=== PATIENT | female | born 1975 | race Caucasian/White ===

== ENCOUNTER 2016-11-23 10:54 | Emergency (ER) | payer SELFPAY ==
--- NOTE | 2016-11-23 11:00 | ER Document Report ---
ED Medical Screen (RME) - General Stated Complaint: URINARY SYMPTOMS Mode of Arrival: Ambulatory Information source: Patient Notes: Patient complains of urinary frequency and dysuria for the past 4 days with low back pain. Patient states she has had a fever I have greeted and performed a rapid initial assessment of this patient. A comprehensive ED assessment and evaluation of the patient, analysis of test results and completion of the medical decision making process will be conducted by additional ED providers. - Related Data Allergies/Adverse Reactions: No Known Allergies Allergy (Unverified 11/23/16 10:57) Physical Exam - General General appearance: Appears well, Alert In distress: None
[2016-11-23 11:32] LABS: APPEARANCE,URINE SLIGHTLY-CLOUDY; BILIRUBIN,URINE NEGATIVE (NEGATIVE); GLUCOSE, URINE NEGATIVE (NEGATIVE); KETONES,URINE NEGATIVE (NEGATIVE); LEUKOCYTE ESTERASE,URINE NEGATIVE (NEGATIVE); NITRITE,URINE NEGATIVE (NEGATIVE); PROTEIN,URINE NEGATIVE (NEGATIVE); URINE SPECIFIC GRAVITY 1.013; UROBILINOGEN,URINE NEGATIVE mg/dL (<2.0)
--- NOTE | 2016-11-23 11:36 | ER Document Report ---
HPI - HPI Onset: Other Onset/Duration: Gradual Quality of pain: Burning Pain Level: 5 Context: 41-year-old female that has had a hysterectomy is complaining of urinary discomfort, burning, pressure, and irritation to her vagina for 5 days. She thought it was a yeast infection and 5 Monistat and Diflucan which did not relieve the symptoms. Urinalysis is been sent for and triaged. She has a history of BV, endometriosis, chronic dyspareunia. No pelvic pain or fever. No vaginal discharge. Associated Symptoms: None Exacerbated by: Denies Relieved by: Denies Similar symptoms previously: Yes Recently seen / treated by doctor: No - ROS ROS below otherwise negative: Yes Systems Reviewed and Negative: Yes All other systems reviewed and negative - URINARY Urinary: REPORTS: Dysuria - DERM Skin Color: Normal - NURSING COMMENTS Comment: s. Pt States buring when she urinates. States that she took something to clear a yeast infection but it hasnt helped. States X5 days. States that it always hurts when she has intercourse. States pain when she urinate Past Medical History - General Information source: Patient - Social History Smoking Status: Former Smoker Cigarette use (# per day): No Chew tobacco use (# tins/day): No Frequency of alcohol use: None Drug Abuse: None Lives with: Family Family History: Reviewed & Not Pertinent Patient has suicidal ideation: No Patient has homicidal ideation: No - Medical History Medical History: Negative Renal/ Medical History: Denies: Hx Peritoneal Dialysis Past Surgical History: Reports: Hx Hysterectomy Vertical Provider Document - CONSTITUTIONAL Agree With Documented VS: Yes Exam Limitations: No Limitations - INFECTION CONTROL TRAVEL OUTSIDE OF THE [place] IN LAST 30 DAYS: No - HEENT HEENT: Normocephalic - NECK Neck: Supple - RESPIRATORY Respiratory: Breath Sounds Normal, No Respiratory Distress O2 Sat by Pulse Oximetry: 100 - CARDIOVASCULAR Cardiovascular: Regular Rate, Regular Rhythm - GI/ABDOMEN Gastrointestinal: Abdomen Soft, Abdomen Non-Tender - REPRODUCTIVE Notes: Vaginal introitus red no lesions. there is monistat cream in her vagina but I did send a wet prep. - NEURO Level of Consciousness: Awake, Alert - DERM Integumentary: Warm, Dry Course - Re-evaluation Re-evalutation: 11/23/16 13:19 Wet prep shows 3+ bacteria 3+ epi's and the lab support service tech said that it smelled fishy when added TOO - Vital Signs Vital signs: Temp Pulse Resp BP Pulse Ox 98.6 F 67 16 124/82 100 11/23/16 10:58 11/23/16 10:58 11/23/16 10:58 11/23/16 10:58 11/23/16 10:58 Discharge - Discharge Clinical Impression: Bacterial vaginosis Condition: Good Disposition: HOME, SELF-CARE Instructions: Vaginosis, Bacterial ([facility]), Metronidazole ([facility]), Family Physicians / Practices, Ob-Continuous Improvement Facilitator Doctors Additional Instructions: no douching no alcohol with the metronidazole see family practice doctor for follow up see obgyn for follow up Prescriptions: Metronidazole 500 mg PO BID #14 tablet
[2016-11-23 13:21] VITALS: BP 130/84
== END 2016-11-23 13:20 | disposition home or self-care (01) ==
LOC: ER 10:54
DX: N76.0 Acute vaginitis (principal); R30.9 Painful micturition, unspecified
CPT/HCPCS: 81001; 81025; 87086; 87088; 87186; 87210; 99283

== ENCOUNTER 2017-02-20 20:56 | Emergency (ER) | payer OTHER ==
[2017-02-20 22:01] LABS: APPEARANCE,URINE CLOUDY; BILIRUBIN,URINE NEGATIVE (NEGATIVE); GLUCOSE, URINE NEGATIVE (NEGATIVE); KETONES,URINE NEGATIVE (NEGATIVE); LEUKOCYTE ESTERASE,URINE LARGE (NEGATIVE); NITRITE,URINE POSITIVE (NEGATIVE); PROTEIN,URINE 100 mg/dL (NEGATIVE); URINE SPECIFIC GRAVITY 1.009; UROBILINOGEN,URINE NEGATIVE mg/dL (<2.0)
--- NOTE | 2017-02-21 00:15 | ER Document Report ---
ED GI/ - General Mode of Arrival: Ambulatory Information source: Patient TRAVEL OUTSIDE OF THE [place] IN LAST 30 DAYS: No - HPI Patient complains to provider of: Flank pain Onset: This morning Similar symptoms previously: Yes - General Chief Complaint: Urinary Problem Stated Complaint: FLANK PAIN Notes: Patient is a 41-year-old female that presents to the emergency department today with complaints of right-sided flank pain that wraps around to her right groin area. Patient states she has frequent UTIs and this feels similar to her previous UTIs. Patient states she does not have a history of kidney stones but she states that she does drink caffeine in large amounts. Patient states she has been mildly nauseated but denies any vomiting or history of back issues. ( ROMY GAUTAM) - Related Data Allergies/Adverse Reactions: No Known Allergies Allergy (Verified 02/20/17 21:37) Past Medical History - General Information source: Patient - Social History Smoking Status: Unknown if Ever Smoked Frequency of alcohol use: None Drug Abuse: None Lives with: Family Family History: Reviewed & Not Pertinent - Medical History Medical History: Negative Past Surgical History: Reports: Hx Hysterectomy Review of Systems - Review of Systems Constitutional: No symptoms reported EENT: No symptoms reported Cardiovascular: No symptoms reported Respiratory: No symptoms reported Gastrointestinal: See HPI, Nausea. denies: Vomiting Genitourinary: See HPI, Dysuria, Flank pain - right Female Genitourinary: No symptoms reported Musculoskeletal: No symptoms reported Skin: No symptoms reported Hematologic/Lymphatic: No symptoms reported Neurological/Psychological: No symptoms reported -: Yes All other systems reviewed and negative Physical Exam - Vital signs Vitals: Temp Pulse Resp BP Pulse Ox 98.8 F 81 17 134/89 H 100 02/20/17 21:37 02/20/17 21:37 02/20/17 21:37 02/20/17 21:37 02/20/17 21:37 - Notes Notes: Physical Exam: General: Alert, appears well. HEENT: Normocephalic. Atraumatic. PERRL. Extraocular movements intact. Oropharynx clear. Neck: Supple. Non-tender. Respiratory: No respiratory distress. Clear and equal breath sounds bilaterally. Cardiovascular: Regular rate and rhythm. Abdominal: Normal Inspection. No right lower quadrant abdominal tenderness with palpation. No distension. Normal Bowel Sounds. Back: Mild right flank tenderness with percussion. No deformity or step off. Extremities: Moves all four extremities. Upper extremities: Normal inspection. Normal ROM. Lower extremities: Normal inspection. No edema. Normal ROM. Neurological: Normal cognition. AAOx4. Normal speech. Psychological: Normal affect. Normal Mood. Skin: Warm. Dry. Normal color. (ROMY GAUTAM) Course - Re-evaluation Re-evalutation: 03/02/17 04:12 well appearing nontoxic, low back pain dysuria, uti. no fever no vomiting, no acute abdominal guarding rebound or rigidity.dc antibiotics close follow up and discussed ed return sooner (ANNA CLARK) - Vital Signs Vital signs: Temp Pulse Resp BP Pulse Ox 97.7 F 76 16 120/75 99 02/21/17 02:27 02/21/17 02:27 02/21/17 02:27 02/21/17 02:27 02/21/17 02:27 - Laboratory Laboratory results interpreted by me: 02/20/17 21:50 Urine Protein 100 H Urine Blood LARGE H Urine Nitrite POSITIVE H Ur Leukocyte Esterase LARGE H Discharge - Discharge Clinical Impression: early acute pyelonephritis Condition: Stable Disposition: HOME, SELF-CARE Additional Instructions: Pyelonephritis Your evaluation shows evidence of pyelonephritis. This is an infection in the kidney. Typical symptoms are fever, pain in the flank, pain on urination, and frequent urination. Many cases of pyelonephritis can be treated at home. Hospital care may be necessary for patients who are very ill, or elderly or . Pyelonephritis is treated with antibiotics. Be sure to take all the medication as prescribed. Drink plenty of liquids (about three quarts per day) . You may take acetaminophen for fever. You should feel significantly improved within two days. You should have a recheck of your urine in about one week to insure that the infection is gone. Return for a re-examination if your symptoms worsen in any way -- such as high fever, shaking chills, severe weakness or dizziness, severe pain, or inability to pass your urine. Urinary Tract Infection Your evaluation indicates that you have a urinary tract infection. This is due to germs growing in the bladder. This is a common problem. This infection usually responds quickly to antibiotics. Your antibiotic should be taken exactly as prescribed. Drink plenty of fluids -- three to four quarts a day. Occasionally, a bladder anesthetic will be prescribed to help stop the feeling of urgency until the antibiotic has a chance to clear the infection. This may cause your urine to be dark orange. Certain urine infections require a culture. If the doctor obtained a culture, the results will be back in two days. You should call to see if a change in treatment is needed. A repeat urinalysis after you finish treatment is often recommended. The physician will let you know if further testing is required. Call the doctor if you develop fever, chills, flank pain, inability to urinate, or blood in the urine. Follow-up in the emergency department in 12-24 hours return for increasing worsening or new symptoms Prescriptions: Nitrofurantoin/Nitrofuran Mac [Macrobid 100 mg Capsule] 1 tab PO BID #20 capsule Oxycodone HCl/Acetaminophen [Percocet 5-325 mg Tablet] 1 - 2 tab PO Q4H PRN #15 tablet PRN Reason: Referrals: [facility] [Provider Group] - Follow up in 3-5 days Mikeibdarius Attestation: 02/21/17 02:10 I personally performed the services described in the documentation reviewed the documentation recorded by my scribe in my presence and it accurately and completely records my words and actions (ANNA CLARK) Mikeibe Documentation - Scribe Written by Fan:: Fan Gonzalez, 02/21/2017 0230 acting as scribe for :: Karl
[2017-02-21] MEDS ORDERED: CEFTRIAXONE INJ 1000 MG VIAL IM ONE (00:18)
[2017-02-21] MEDS ORDERED: OXYCODONE-ACETAMINOPHEN 5-325 MG TABLET PO ONE (00:42)
[2017-02-21] MEDS ORDERED: LIDOCAINE 1% INJ-PF (10 MG/ML) 30 ML SDV ONE (00:54)
[2017-02-21 08:14] VITALS: BP 120/75
== END 2017-02-21 02:27 | disposition home or self-care (01) ==
LOC: ER 20:56
DX: N10 Acute pyelonephritis (principal)
CPT/HCPCS: 99284; 96372; 81001; 74176; J0696

== ENCOUNTER → 2017-06-17 | Outpatient (CLI) | payer MEDICAID ==
--- NOTE | 2017-06-17 10:55 | WOMENS IMAGING REPORT ---
EXAM DESCRIPTION: BILAT DIAGNOSTIC MAMMO W/CAD; U/S BREAST UNILATERAL, COMPL COMPLETED DATE/TIME: 06/17/2017 8:03 am; 06/17/2017 9:12 am REASON FOR STUDY: MASTODYNIA; RT BREAST PAIN N64.4 MASTODYNIA right breast pain COMPARISON: None. TECHNIQUE: Standard craniocaudal and mediolateral oblique views of each breast recorded using digita l acquisition. Additional left breast cone compression view CC orientation, additional right breast 90 mediolateral view. Additional left breast CC and MLO tomosynthesis. Right breast ultrasound LIMITATIONS: None. FINDINGS: RIGHT BREAST MASSES: No suspicious masses. CALCIFICATIONS: No suspicious calcifications. Benign skin calcifications are present ARCHITECTURAL DISTORTION: None. DEVELOPING DENSITY: None. ASYMMETRY: None noted. OTHER: No other significant findings. LEFT BREAST MASSES: No suspicious masses. CALCIFICATIONS: No suspicious calcifications. Benign skin calcifications are present ARCHITECTURAL DISTORTION: Standard craniocaudad mammogram demonstrated a questionable area of archite ctural distortion in the deep central left breast. This was followed up with additional left breast cone compression view and left breast diagnostic tomosynthesis. No persistent architectural distorti on. No focal mammographic findings. DEVELOPING DENSITY: None. ASYMMETRY: None noted. OTHER: No other significant finding. Read with the assistance of CAD: .[facility] - R2 Cenova Version 1.3 .[facility] - R2 Cenova Version 1.3 .[facility] - R2 Cenova Version 2.4 .[facility] [place] [facility] - R2 Cenova Version 2.4 .[facility] - R2 Vest Finisher Version 9.2 Patient presented with right breast pain. Ultrasound of the entire right breast was performed. No c ysts. No masses. No worrisome acoustic absorption. No focal findings. IMPRESSION: No mammographic or sonographic evidence for malignancy right breast. No mammographic evidence for malignancy left breast. BREAST DENSITY: b. There are scattered areas of fibroglandular density. BIRAD: 2 Benign findings. RECOMMENDATION: RECOMMENDED FOLLOW UP: Please continue yearly bilateral screening in May 2018. C onsider bilateral screening tomosynthesis. SPECIFIC INTERVENTION/IMAGING/CONSULTATION RECOMMENDED:No additional intervention/ imaging/consultati on needed at this time. COMMUNICATION:Patient notified by letter COMMENT: The patient has been notified of the results by letter per MQSA requirements. Additional no tification policies are in place for contacting patient with suspicious or incomplete findings. Quality ID #[id number]: The [employer] recommends an annual screening mammogram for women aged 40 years or over. This facility utilizes a reminder system to ensure that all patients receive reminder letters, and/or direct phone calls for appointments. This includes reminders for routine scr eening mammograms, diagnostic mammograms, or other Breast Imaging Interventions when appropriate. Th is patient will be placed in the appropriate reminder system. The [employer] (ACR) has developed recommendations for screening MRI of the breast s in certain patient populations, to be used in conjunction with mammography. Breast MRI surveillanc e may be appropriate for women with more than 20% lifetime risk of developing breast cancer as deter mined by genetic testing, significant family history of the disease, or history of mantle radiation f or Hodgkins Disease. ACR Practice Guidelines 2008. TECHNICAL DOCUMENTATION: FINDING NUMBER: (1) ASSESSMENT: (1) JOB ID: [id number] [employer]- All Rights Reserved
--- NOTE | 2017-06-17 10:55 | WOMENS IMAGING REPORT ---
EXAM DESCRIPTION: BILAT DIAGNOSTIC MAMMO W/CAD; U/S BREAST UNILATERAL, COMPL COMPLETED DATE/TIME: 06/17/2017 8:03 am; 06/17/2017 9:12 am REASON FOR STUDY: MASTODYNIA; RT BREAST PAIN N64.4 MASTODYNIA right breast pain COMPARISON: None. TECHNIQUE: Standard craniocaudal and mediolateral oblique views of each breast recorded using digita l acquisition. Additional left breast cone compression view CC orientation, additional right breast 90 mediolateral view. Additional left breast CC and MLO tomosynthesis. Right breast ultrasound LIMITATIONS: None. FINDINGS: RIGHT BREAST MASSES: No suspicious masses. CALCIFICATIONS: No suspicious calcifications. Benign skin calcifications are present ARCHITECTURAL DISTORTION: None. DEVELOPING DENSITY: None. ASYMMETRY: None noted. OTHER: No other significant findings. LEFT BREAST MASSES: No suspicious masses. CALCIFICATIONS: No suspicious calcifications. Benign skin calcifications are present ARCHITECTURAL DISTORTION: Standard craniocaudad mammogram demonstrated a questionable area of archite ctural distortion in the deep central left breast. This was followed up with additional left breast cone compression view and left breast diagnostic tomosynthesis. No persistent architectural distorti on. No focal mammographic findings. DEVELOPING DENSITY: None. ASYMMETRY: None noted. OTHER: No other significant finding. Read with the assistance of CAD: .[facility] - R2 Cenova Version 1.3 .[facility] Imaging - R2 Cenova Version 1.3 .[facility] - R2 Cenova Version 2.4 .[facility] - R2 Cenova Version 2.4 .[facility] - R2 Sr Technical Sales Consultant Version 9.2 Patient presented with right breast pain. Ultrasound of the entire right breast was performed. No c ysts. No masses. No worrisome acoustic absorption. No focal findings. IMPRESSION: No mammographic or sonographic evidence for malignancy right breast. No mammographic evidence for malignancy left breast. BREAST DENSITY: b. There are scattered areas of fibroglandular density. BIRAD: 2 Benign findings. RECOMMENDATION: RECOMMENDED FOLLOW UP: Please continue yearly bilateral screening in May 2018. C onsider bilateral screening tomosynthesis. SPECIFIC INTERVENTION/IMAGING/CONSULTATION RECOMMENDED:No additional intervention/ imaging/consultati on needed at this time. COMMUNICATION:Patient notified by letter COMMENT: The patient has been notified of the results by letter per MQSA requirements. Additional no tification policies are in place for contacting patient with suspicious or incomplete findings. Quality ID #[id number]: The [employer] recommends an annual screening mammogram for women aged 40 years or over. This facility utilizes a reminder system to ensure that all patients receive reminder letters, and/or direct phone calls for appointments. This includes reminders for routine scr eening mammograms, diagnostic mammograms, or other Breast Imaging Interventions when appropriate. Th is patient will be placed in the appropriate reminder system. The [employer] (ACR) has developed recommendations for screening MRI of the breast s in certain patient populations, to be used in conjunction with mammography. Breast MRI surveillanc e may be appropriate for women with more than 20% lifetime risk of developing breast cancer as deter mined by genetic testing, significant family history of the disease, or history of mantle radiation f or Hodgkins Disease. ACR Practice Guidelines 2008. TECHNICAL DOCUMENTATION: FINDING NUMBER: (1) ASSESSMENT: (1) JOB ID: [id number] [employer]- All Rights Reserved
== END ==
LOC: WI 07:43
PROVIDERS: ATTEND Nurse Practitioner
DX: N64.4 Mastodynia (principal)
CPT/HCPCS: 76641; G0204; 77066

== ENCOUNTER → 2018-12-06 | Outpatient (CLI) | payer MEDICAID ==
--- NOTE | 2018-12-06 15:53 | RADIOLOGY REPORT (SQ) ---
EXAM DESCRIPTION: LUMBAR SPINE COMPLETE COMPLETED DATE/TIME: 12/06/2018 3:14 pm REASON FOR STUDY: LOW BACK PAIN M54.5 LOW BACK PAIN COMPARISON: None. NUMBER OF VIEWS: Five views including obliques. TECHNIQUE: AP, lateral, oblique, and sacral radiographic images acquired of the lumbar spine. LIMITATIONS: None. FINDINGS: MINERALIZATION: Normal. SEGMENTATION: Normal. No transitional anatomy. ALIGNMENT: Normal. VERTEBRAE: Maintained height. No fracture or worrisome bone lesion. DISCS: Disc space narrowing L4-5 and L5-S1. POSTERIOR ELEMENTS: Pedicles and facets are intact. No pars defect or posterior arch defects. HARDWARE: None in the spine. PARASPINAL SOFT TISSUES: Normal. PELVIS: Intact as visualized. No fractures or worrisome bone lesions. SI joints intact. OTHER: No other significant finding. IMPRESSION: L4-5 and L5-S1 disc space narrowing without significant osteophytes. TECHNICAL DOCUMENTATION: JOB ID: [id number] [employer] All Rights Reserved Reading location - IP/workstation name: [email or web address]
== END ==
LOC: OD 14:40
PROVIDERS: ATTEND Nurse Practitioner Family
DX: M54.5 Low back pain (principal); M48.07 Spinal stenosis, lumbosacral region
CPT/HCPCS: 72110

== ENCOUNTER → 2018-12-27 | Outpatient (CLI) | payer MEDICAID ==
--- NOTE | 2018-12-27 09:17 | RADIOLOGY REPORT (SQ) ---
EXAM DESCRIPTION: MRI LUMBAR SPINE WITHOUT COMPLETED DATE/TIME: 12/27/2018 8:13 am REASON FOR STUDY: LUMBAR DDD (M51.36) M51.36 OTHER INTERVERTEBRAL DISC DEGENERATION, LUMBAR REGION COMPARISON: Lumbar spine plain films 12/06/2018 TECHNIQUE: Sagittal and Axial imaging includes T1, T2, STIR and gradient echo sequences. Coronal T2/ HASTE imaging. LIMITATIONS: None. FINDINGS: VISUALIZED UPPER ABDOMEN: Limited evaluation. No acute or suspicious findings suggested. SEGMENTATION: No transitional anatomy. The lowest well-developed disc space is labeled L5-S1. ALIGNMENT: Anatomic. VERTEBRAE: Intact. BONE MARROW: Mixed fatty and sclerotic vertebral body endplate changes at L4-5 DISC SIGNAL: Disc space loss of height with decreased T2 weighted intervertebral disc signal at L3-4, L4-5, and L5-S1 POSTERIOR ELEMENTS: Bilateral sclerotic spondylolysis at L5, best shown on axial T2 image 26 HARDWARE: None in the spine. CORD AND CONUS: Normal in size and signal intensity. Conus at the T12 level. SOFT TISSUES: No aortic aneurysm seen. No bulky retroperitoneal adenopathy or mass. No paraspinal mas s or fluid. T11-12: No central or foraminal stenosis T12-L1: No central or foraminal stenosis L1-L2: No central or foraminal stenosis L2-L3: No central or foraminal stenosis L3-L4: Minimal posterior disc bulging is present with mild bilateral facet and ligament hypertrophy. Borderline central canal narrowing best shown on axial T2 image 19. No significant foraminal narrow ing. L4-L5: Minimal posterior disc bulging, mild bilateral facet and ligament hypertrophy. No significant central stenosis. Mild bilateral inferior foraminal narrowing without exiting L4 nerve root impinge ment. L5-S1: Bilateral facet arthropathy. Minimal posterior disc bulging. No central or foraminal encroac hment. 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 OTHER: No other significant findings. IMPRESSION: Mild degenerative changes lower lumbar spine. No high-grade central or foraminal stenos is TECHNICAL DOCUMENTATION: JOB ID: [id number] [employer]- All Rights Reserved Reading location - IP/workstation name: [email or web address]
== END ==
LOC: RAD 07:01
PROVIDERS: ATTEND Nurse Practitioner Family
DX: M51.36 Other intervertebral disc degeneration, lumbar region (principal)
CPT/HCPCS: 72148